=== PATIENT | female | born 1995 | race Caucasian/White ===

== ENCOUNTER 2017-02-03 22:58 | Emergency (ER) | payer OTHER | END 2017-02-03 23:58 | disposition home or self-care (01) | LOC: CFTX 22:58 → CED 22:58 → CFTX 23:58 | DX: S90.561A Insect bite (nonvenomous), right ankle, initial encounter (principal); J45.909 Unspecified asthma, uncomplicated; Z88.0 Allergy status to penicillin; F17.210 Nicotine dependence, cigarettes, uncomplicated; W57.XXXA Bitten or stung by nonvenomous insect and other nonvenomous arthropods, initial encounter; Y92.9 Unspecified place or not applicable | CPT/HCPCS: 99281 ==